=== PATIENT | male | born 1930 | race Caucasian/White ===

== ENCOUNTER 2017-11-05 11:53 | Inpatient (IN) | payer MEDICARE ==
[~2017-11-05] VITALS: Ht 172.7 cm; Wt 71.8 kg
[2017-11-05 14:15] VITALS: BP 105/53; PULSE 82
[2017-11-05 14:30] VITALS: BP 101/54; PULSE 81
[2017-11-05] MEDS ORDERED: PHENYTEK300 MG PO (15:14)
[2017-11-05] MEDS ORDERED: LASIX 20MG TABL20 MG PO (15:15)
[2017-11-05 16:30] VITALS: BP 130/53; PULSE 97; TEMP 98.3
[2017-11-05 20:19] VITALS: BP 111/62; PULSE 90; TEMP 98.4
[2017-11-06] VITALS (14 sets, daily range): BP systolic 103–1364; BP diastolic 49–76; PULSE 87–119; TEMP 97.5–98.5
[2017-11-06 07:51] LABS: CALCIUM 8.1 mg/dL (8.4-10.2); CREATININE, serum 0.62 mg/dL (0.66-1.25); POTASSIUM 3.8 mmol/L (3.4-5.0)
[2017-11-06 07:59] LABS: HEMOGLOBIN 10.8 g/dl (13.5-18.0); MEAN CELL VOLUME 92 fl (80.0-100.0); MEAN CORPUSCULAR HEMOGLOBIN 30 pg (27.0-31.0); MEAN CORPUSCULAR HGB CONC 33 g/dl (33.0-37.0); MEAN PLATELET VOLUME 11.3 fl (7.4-10.4); PLATELET COUNT 97 K/mm3 (130-400); RED BLOOD COUNT 3.62 M/mm3 (4.20-5.60); REDCELL DISTRIBUTION WIDTH-CV 14.7 % (11.5-14.5)
[2017-11-06 08:00] LABS: HEMATOCRIT 33.2 % (42.0-52.0)
[2017-11-06 08:37] LABS: BAND 10 % (0-10); LYMPHOCYTE 42 % (20.0-51.0); METAMYELOCYTE 1 % (0-0); NEUTROPHILS 45 % (42.0-75.2); PLATELET ESTIMATE DECREASED (NORMAL)
[2017-11-07 04:37] VITALS: BP 137/55; PULSE 110; TEMP 97.5
[2017-11-07 07:23] LABS: MEAN CELL VOLUME 92 fl (80.0-100.0); MEAN CORPUSCULAR HGB CONC 33 g/dl (33.0-37.0); MEAN PLATELET VOLUME 11.5 fl (7.4-10.4); PLATELET COUNT 84 K/mm3 (130-400); RED BLOOD COUNT 2.88 M/mm3 (4.20-5.60); REDCELL DISTRIBUTION WIDTH-CV 14.6 % (11.5-14.5)
[2017-11-07 07:26] LABS: HEMATOCRIT 26.4 % (42.0-52.0); HEMOGLOBIN 8.7 g/dl (13.5-18.0); MEAN CORPUSCULAR HEMOGLOBIN 30 pg (27.0-31.0)
[2017-11-07 07:34] VITALS: BP 107/49; PULSE 102; TEMP 98.2
[2017-11-07 07:43] LABS: CALCIUM 7.5 mg/dL (8.4-10.2); CREATININE, serum 0.72 mg/dL (0.66-1.25); POTASSIUM 3.7 mmol/L (3.4-5.0)
[2017-11-07 08:34] LABS: BAND 5 % (0-10); BASOPHIL 1 % (0-2); LYMPHOCYTE 52 % (20.0-51.0); NEUTROPHILS 38 % (42.0-75.2)
[2017-11-07 08:35] LABS: MICROCYTOSIS 1+; PLATELET ESTIMATE DECREASED (NORMAL)
[2017-11-07 11:20] VITALS: BP 101/45; PULSE 96; TEMP 98.6
[2017-11-07 15:16] VITALS: BP 94/47; PULSE 80; TEMP 98.3
[2017-11-07 19:25] VITALS: BP 104/48; PULSE 90; TEMP 97.8
[2017-11-08] VITALS (7 sets, daily range): BP systolic 103–121; BP diastolic 50–62; PULSE 78–93; TEMP 97.5–99
[2017-11-08 07:33] LABS: MEAN CELL VOLUME 92 fl (80.0-100.0); MEAN CORPUSCULAR HGB CONC 32 g/dl (33.0-37.0); MEAN PLATELET VOLUME 11.2 fl (7.4-10.4); PLATELET COUNT 71 K/mm3 (130-400); RED BLOOD COUNT 2.69 M/mm3 (4.20-5.60); REDCELL DISTRIBUTION WIDTH-CV 14.5 % (11.5-14.5)
[2017-11-08 07:37] LABS: HEMATOCRIT 24.8 % (42.0-52.0); MEAN CORPUSCULAR HEMOGLOBIN 30 pg (27.0-31.0)
[2017-11-08 07:45] LABS: CALCIUM 7.6 mg/dL (8.4-10.2); CREATININE, serum 0.62 mg/dL (0.66-1.25); POTASSIUM 3.9 mmol/L (3.4-5.0)
[2017-11-08 08:42] LABS: BAND 1 % (0-10); HYPOCHROMIA 2+; LYMPHOCYTE 54 % (20.0-51.0); NEUTROPHILS 41 % (42.0-75.2)
[2017-11-08 08:43] LABS: MICROCYTOSIS 1+
[2017-11-09 03:48] VITALS: BP 105/49; PULSE 83; TEMP 97.5
[2017-11-09 08:00] VITALS: BP 118/72; PULSE 88; TEMP 98
[2017-11-09 08:09] LABS: MEAN CELL VOLUME 91 fl (80.0-100.0); MEAN CORPUSCULAR HGB CONC 33 g/dl (33.0-37.0); MEAN PLATELET VOLUME 10.8 fl (7.4-10.4); PLATELET COUNT 92 K/mm3 (130-400); RED BLOOD COUNT 3.01 M/mm3 (4.20-5.60); REDCELL DISTRIBUTION WIDTH-CV 14.5 % (11.5-14.5)
[2017-11-09 08:12] LABS: HEMATOCRIT 27.5 % (42.0-52.0); HEMOGLOBIN 9.1 g/dl (13.5-18.0); MEAN CORPUSCULAR HEMOGLOBIN 30 pg (27.0-31.0)
[2017-11-09 08:19] LABS: CALCIUM 8.1 mg/dL (8.4-10.2); CREATININE, serum 0.63 mg/dL (0.66-1.25); POTASSIUM 4.5 mmol/L (3.4-5.0)
[2017-11-09] MEDS ORDERED: ASPI325T6 PO (08:29)
[2017-11-09] MEDS ORDERED: IPRATROPIUM BROM3 M1 IH ×2 (08:29→08:30)
[2017-11-09] MEDS ORDERED: TYLENOL 325MG325 MG PO (08:30)
[2017-11-09] MEDS ORDERED: OYSCO 500500 M1 PO (08:31)
[2017-11-09] MEDS ORDERED: DULCOLAX S10 MG/SUPP RC (08:31)
[2017-11-09] MEDS ORDERED: SENOKOT S 50 MG1 TAB PO (08:31)
[2017-11-09] MEDS ORDERED: VITAMINC500CH PO (08:32)
[2017-11-09] MEDS ORDERED: NORCO 325 MG-51 TAB PO (08:32)
[2017-11-09] MEDS ORDERED: GOOD NEIGH1200 MG/15 PO (08:32)
[2017-11-09] MEDS ORDERED: MULTI VITAMINS1 TAB PO (08:32)
[2017-11-09 09:30] LABS: BAND 10 % (0-10); HYPOCHROMIA 1+; LYMPHOCYTE 44 % (20.0-51.0); NEUTROPHILS 45 % (42.0-75.2); NUCLEATED RED BLOOD CELL 1 (0-6); PLATELET ESTIMATE DECREASED (NORMAL)
[2017-11-09 12:17] VITALS: BP 131/54; PULSE 77; TEMP 97.9
[2017-11-09 15:34] VITALS: BP 116/67; PULSE 84; TEMP 98.4
[2017-11-09 19:49] VITALS: BP 122/50; PULSE 87; TEMP 98.2
[2017-11-09 23:21] VITALS: BP 115/52; PULSE 80; TEMP 98.6
[2017-11-10 04:14] VITALS: BP 127/58; PULSE 90; TEMP 98.6
[2017-11-10 07:20] LABS: CALCIUM 7.8 mg/dL (8.4-10.2); CREATININE, serum 0.62 mg/dL (0.66-1.25); MAGNESIUM 2.3 mg/dL (1.6-2.3); POTASSIUM 3.6 mmol/L (3.4-5.0)
[2017-11-10 11:28] VITALS: BP 111/46; PULSE 87; TEMP 97.8
== END 2017-11-10 13:40 | DRG 481 ==
LOC: SURG 11:53
PROVIDERS: Nurse Practitioner Family; Orthopaedic Surgery
PROC: 0QH704Z Insertion of Internal Fixation Device into Left Upper Femur, Open Approach (ICD-10-PCS; principal; 2017-11-06 12:30)
DX: S72.142A Displaced intertrochanteric fracture of left femur, initial encounter for closed fracture (principal); C91.10 Chronic lymphocytic leukemia of B-cell type not having achieved remission; E87.1 Hypo-osmolality and hyponatremia; Z66 Do not resuscitate; F79 Unspecified intellectual disabilities; W18.30XA Fall on same level, unspecified, initial encounter; R06.89 Other abnormalities of breathing; G40.909 Epilepsy, unspecified, not intractable, without status epilepticus; Z85.828 Personal history of other malignant neoplasm of skin; E87.70 Fluid overload, unspecified
CPT/HCPCS: 99232-AI; 99233-AI; A9284; C1713; J0690; J1940; J2250; J2270; J2704; J3010; J7120